=== PATIENT | male | born 1955 | race Caucasian/White ===

== ENCOUNTER 2018-01-03 15:05 | Outpatient (CLI) | payer OTHER | END 2018-01-03 15:06 | disposition home or self-care (01) | LOC: SC 15:05 | PROVIDERS: ATTEND Internal Medicine Pulmonary Disease | DX: G47.33 Obstructive sleep apnea (adult) (pediatric) (principal) | CPT/HCPCS: 99203; 99212 ==

== ENCOUNTER 2018-03-07 19:21 | Outpatient (CLI) | payer OTHER | END 2018-03-07 19:22 | disposition home or self-care (01) | LOC: SC 19:21 | PROVIDERS: ATTEND Internal Medicine Pulmonary Disease | DX: G47.33 Obstructive sleep apnea (adult) (pediatric) (principal); G47.61 Periodic limb movement disorder | CPT/HCPCS: 95810 ==

== ENCOUNTER 2018-06-27 14:11 | Outpatient (CLI) | payer OTHER | END 2018-06-27 14:12 | disposition home or self-care (01) | LOC: SC 14:11 | PROVIDERS: ATTEND Nurse Practitioner Family | DX: G47.33 Obstructive sleep apnea (adult) (pediatric) (principal); G47.61 Periodic limb movement disorder | CPT/HCPCS: 99212; 99214 ==

== ENCOUNTER 2018-08-22 14:58 | Outpatient (CLI) | payer OTHER | END 2018-08-22 14:59 | disposition home or self-care (01) | LOC: SC 14:58 | PROVIDERS: ATTEND Nurse Practitioner Family | DX: G47.33 Obstructive sleep apnea (adult) (pediatric) (principal) | CPT/HCPCS: 99212; 99214 ==

== ENCOUNTER 2018-09-27 15:12 | Outpatient (CLI) | payer OTHER | END 2018-09-27 15:13 | disposition home or self-care (01) | LOC: SC 15:12 | PROVIDERS: ATTEND Nurse Practitioner Family | DX: G47.33 Obstructive sleep apnea (adult) (pediatric) (principal) | CPT/HCPCS: 99212; 99213 ==

== ENCOUNTER 2020-02-08 18:22 | Emergency (ER) | payer MEDICARE, OTHER ==
[2020-02-08 18:52] LABS: BASOPHILS # (AUTO) 0.1 10^3/uL (0.0-0.1); BASOPHILS % (AUTO) 0.6 %; EOSINOPHILS # (AUTO) 0.1 10^3/uL (0.0-0.7); EOSINOPHILS % (AUTO) 0.6 %; LYMPHOCYTES # (AUTO) 1.3 10^3/uL (1.5-3.5); LYMPHOCYTES % (AUTO) 15.5 %; MEAN CORPUSCULAR HEMOGLOBIN 31.5 pg (27.0-31.0); MEAN CORPUSCULAR HGB CONC 34.7 g/dL (32.0-36.0); MEAN CORPUSCULAR VOLUME 90.8 fL (80.0-94.0); MEAN PLATELET VOLUME 9.4 fL (7.4-11.4); MONOCYTES # (AUTO) 0.7 10^3/uL (0.0-1.0); MONOCYTES % (AUTO) 8.5 %; NEUTROPHILS # (AUTO) 6.2 10^3/uL (1.5-6.6); NEUTROPHILS % (AUTO) 74.3 %; PLT - PLATELET COUNT 219 10^3/uL (130-450); RED BLOOD COUNT 4.44 10^6/uL (4.70-6.10); WHITE BLOOD COUNT 8.3 x10^3/uL (4.8-10.8)
--- NOTE | 2020-02-08 18:54 | ED Physician Documentation ---
PD HPI CHEST PAIN - Stated complaint Stated Complaint: LT ARM TINGLING / ACHE - Chief complaint Chief Complaint: Cardiac - History obtained from History obtained from: Patient (64-year-old gentleman with history of hypertension has had 3 days of intermittent left scapular pain that was better with exercise. Today developed some left arm tingling and very mild anterior chest pain about 4 hours ago. Denies shortness of breath, sweats, or nausea. No history of heart problems. Has had a stress test that was negative in the remote past.) Review of Systems Ten Systems: 10 systems reviewed and negative Constitutional: denies: Fever, Chills, Fatigue Respiratory: denies: Dyspnea, Cough GI: denies: Abdominal Pain, Nausea PD PAST MEDICAL HISTORY - Allergies Allergies/Adverse Reactions: Allergies Allergy/AdvReac Type Severity Reaction Status Date / Time quinine Allergy Unknown Rash Verified 02/08/20 18:32 PD ED PE NORMAL - Vitals Vital signs reviewed: Yes - General General: Alert and oriented X 3, No acute distress - HEENT HEENT: PERRL, EOMI - Neck Neck: Supple, no meningeal sign, No bony TTP - Cardiac Cardiac: RRR, No murmur - Respiratory Respiratory: No respiratory distress, Clear bilaterally - Abdomen Abdomen: Non tender - Extremities Extremities: No edema, No calf tenderness / cord - Neuro Neuro: Alert and oriented X 3, Normal speech Results - Vitals Vitals: Vital Signs - 24 hr 02/08/20 18:32 Temperature 36.6 C Heart Rate 78 Respiratory 15 Rate Blood Pressure 143/75 H O2 Saturation 97 Oxygen O2 Source Room air - EKG (time done) 1833 Rate: Rate (enter#) (69) Rhythm: NSR [place]: Normal Intervals: Normal TN QRS: Normal Ischemia: Normal ST segments - Labs Labs: Laboratory Tests 02/08/20 02/08/20 02/08/20 18:48 18:48 18:48 WBC 8.3 RBC 4.44 L Hgb 14.0 Hct 40.3 L MCV 90.8 MCH 31.5 H MCHC 34.7 RDW 12.0 Plt Count 219 MPV 9.4 Neut # (Auto) 6.2 Lymph # (Auto) 1.[address] [place] # (Auto) 0.7 Eos # (Auto) 0.1 Baso # (Auto) 0.1 Absolute Nucleated RBC 0.00 Nucleated RBC % 0.0 Sodium 133 L Potassium 3.5 Chloride 98 L Carbon Dioxide 26 Anion Gap 9.0 BUN 20 Creatinine 1.1 Estimated GFR (MDRD) 67 L Glucose 140 H Calcium 8.5 Total Bilirubin 0.8 AST 28 ALT 19 Alkaline Phosphatase 57 Troponin I High Sens 3.9 Total Protein 6.8 Albumin 4.3 Globulin 2.5 Albumin/Globulin Ratio 1.7 Lipase 28 PD MEDICAL DECISION MAKING - ED course ED course: 64-year-old gentleman with very atypical chest pain, heart score 3. Departure - Departure Disposition: 01 Home, Self Care Clinical Impression: Atypical chest pain Condition: Good Record reviewed to determine appropriate education?: Yes Instructions: ED Chest Pain Atypical Unkn Cause Comments: Follow-up with your doctor on Tuesday for recheck, consider stress testing again since it has been a long time since you have had that done. Return for new or worsening symptoms.
[2020-02-08 19:06] LABS: ALBUMIN 4.3 g/dL (3.2-5.5); ALBUMIN/GLOBULIN RATIO 1.7 (1.0-2.2); BILIRUBIN,TOTAL 0.8 mg/dL (0.2-1.0); CALCIUM 8.5 mg/dL (8.5-10.3); CREATININE 1.1 mg/dL (0.6-1.2); TOTAL PROTEIN 6.8 g/dL (6.7-8.2)
--- NOTE | 2020-02-08 19:23 | XRAY Report ---
Reason: chest pain Procedure Date: 02/08/2020 Accession Number: [id number] / [id number] Procedure: XR - Chest 1 View X-Ray CPT Code: 53410 Final Report FULL RESULT: EXAM: CHEST RADIOGRAPHY EXAM DATE: 02/08/2020 07:04 PM. CLINICAL HISTORY: Chest pain. COMPARISON: None. TECHNIQUE: 1 view. FINDINGS: Lungs/Pleura: No infiltrates. No pleural effusions or pneumothorax. Mediastinum: Within exam limitations, the cardiomediastinal contour is normal. Osseous structures: No significant focal osseous lesions. Chronic left seventh rib fracture. IMPRESSION: No acute cardiopulmonary findings radiographically. [facility]
[2020-02-08 19:49] VITALS: BP 114/72
== END 2020-02-08 19:50 | disposition home or self-care (01) ==
LOC: ED 18:22
DX: R07.89 Other chest pain (principal); R20.2 Paresthesia of skin; I10 Essential (primary) hypertension
CPT/HCPCS: 36415; 71045; 80053; 83690; 84484; 85025; 93005; 99284

== ENCOUNTER 2020-06-23 15:33 | Outpatient (CLI) | payer MEDICARE, OTHER ==
[2020-06-23 16:46] VITALS: BP 108/60
--- NOTE | 2020-06-23 16:46 | SLEEP CARE CONSULTATION ---
Information from patient questionnaire entered by Lobo Ko. I have reviewed and concur with the information entered by Lobo Ko. This document represents the service I personally performed and the decisions made by me, Shelly Lemus RN, MSN, [employer]. History of Present Illness Service Date and Time: 06/23/2020 1533 Previous diagnosis: Mild, Obstructive Sleep Apnea-Hypopnea Syndrome AHI: 12.6 Reason for follow up: first compliance after device update Equipment type: CPAP Mask style: Nasal pillows ( Fx) Backup mask available: Yes (old mask ) Last cushion change: 1 week ago Prior sleep studies: Yes Year and Where: [address] [facility] Type of Sleep Study: Polysomnography Sleep Study - Results Prior sleep studies: Yes CPAP Compliance Data - Data Reviewed with Patient Average duration of nightly device use: 5 h 26 min Compliance rate %: 90 Current pressure setting (cmH2O): 8-9 Humidity setting: auto Heated hose setting: auto Average residual AHI: 0.4 Subjective Patient concerns: reports: aerophagia (most mornings wakes bloated relieved with burping and flatus and frequent Gas X), nasal congestion (chronic - showers before bed, nasal lavage with saline), dry mouth, nose, throat (a few days a week). denies: mask discomfort, air blowing in eyes, mask leak noise, condensation in mask/hose, epistaxis Observed to snore while using device: No (occasionally when supine) Current pressure setting perceived as: comfortable On therapy, patient: reports: sleeping better, awakening more refreshed, being more awake and alert during the day, more rested overall. denies: drowsiness while driving Initial [place] Sleepiness Scale score: 2 (in 2018) Current [place] Sleepiness Scale score: 2 Allergies and Home Medications Known drug allergies: Yes Home medication list reviewed: No (any changes ) Review of Systems Review of systems same as previous: Yes Physical Exam Blood Pressure: 108/60 Cuff size: long Heart Rate: 60 O2 Saturation: 98 Height: 5 ft 11 in Weight: 173 lb 12.8 oz Body Mass Index: 24.2 BMI Classification: Healthy weight Impression and Plan 1. Obstructive Sleep Apnea-Hypopnea Syndrome, mild , with good treatment compliance and good apnea control. On CPAP therapy, the patient has better sleep quality and is more rested overall. To reduce symptoms of aerophagia, the CPAP pressure will be reduced to 6-7 cmH2O. Patient advised to contact me if this does not reduce symptoms or if pressure change uncomfortable. Oral dryness can be reduced by adjusting humidity setting higher or heated hose lower or by adjusting both settings. Verbal instructions given on how to change humidity and heated hose settings with rationale explaining why to change and shown process on sample device. Questions answered in regard to CPAP acid loader. Informed of FDA warning of health risks associated with use and cannot recommend. This information can be found online. Usual cleaning as advised by DME . Patient's apnea severity and rationale for treatment to reduce apnea, improve sleep quality and reduce cardiovascular and cerebrovascular events was reviewed. I also reviewed the benefit of consistent device use of CPAP for hypertension. Since patient has more severe apnea in supine position, patient advised to avoid supine sleep with pillow positioning if unable to use CPAP while ill or if without electricity to reduce apnea risk. * * Changeauto CPAP pressure to 6-7 cmH2O * Adjust humidity * Notify me if snoring with mask or feeling that the pressure is too much or too little * Attempt to lose weight * Call this office if any problems using CPAP * Return for follow up in 1 year , or sooner if concerns arise Visit Type: In Office Time Spent with Patient (minutes): 25 Provider Statement: I spent 100% of the Face to Face Visit with the patient with greater than 50% spent counseling the patient and coordination of care.
== END 2020-06-23 15:34 | disposition home or self-care (01) ==
LOC: SC 15:33
PROVIDERS: ATTEND Nurse Practitioner Family
DX: G47.33 Obstructive sleep apnea (adult) (pediatric) (principal)
CPT/HCPCS: 99214; G0463; 99212